=== PATIENT | female | born 1970 | race Caucasian/White ===

== ENCOUNTER 2019-03-01 03:51 | Inpatient (IN) ==
[2019-03-01] MEDS ORDERED: ONDANSETRON 4 MG/2 ML VIAL IV STA (04:15)
[2019-03-01] MEDS ORDERED: MEPERIDINE 25 MG/1 ML VIAL IV STA (04:15)
[2019-03-01] MEDS ORDERED: ONDANSETRON 4 MG/2 ML VIAL IV PRN (06:05)
[2019-03-01] MEDS ORDERED: HYDROmorphone 2 MG/1 ML VIAL IV PRN (06:05)
[2019-03-01] MEDS ORDERED: ACETAMINOPHEN 325 MG TABLET PO PRN (06:05)
[2019-03-01] MEDS: SODIUM CHLORIDE 0.9% 1,000 ML IV SCH ×2 (06:38→19:27)
[2019-03-01] MEDS ORDERED: LIDOCAINE 1%/EPI INJ 20 ML VIAL ONE (09:30)
[2019-03-01] MEDS ORDERED: TISSUE ADHESIVE 1 EACH APPLICATOR TOP ONE (10:48)
[2019-03-01] MEDS ORDERED: DEXTROSE 50% 25 GM/50 ML SYRINGE IV PRN (10:59)
[2019-03-01] MEDS ORDERED: GLUCAGON 1 MG VIAL IM PRN (10:59)
[2019-03-01] MEDS ORDERED: PROPOFOL 200 MG/20 ML VIAL IV ONE (11:28)
[2019-03-01] MEDS ORDERED: MIDAZOLAM 2 MG/2 ML VIAL ONE (11:29)
[2019-03-01] MEDS ORDERED: fentaNYL 100 MCG/2 ML VIAL ONE (11:29)
[2019-03-01] MEDS ORDERED: ONDANSETRON 4 MG/2 ML VIAL ONE (11:29)
[2019-03-01] MEDS ORDERED: SEVOFLURANE 1 UNIT/15 MINUTE INH ONE (11:29)
[2019-03-01] MEDS ORDERED: ROCURONIUM 100 MG/10 ML VIAL IV ONE (11:30)
[2019-03-01] MEDS ORDERED: KETOROLAC 30 MG/1 ML VIAL ONE (11:30)
[2019-03-01] MEDS ORDERED: SUCCINYLCHOLINE 200 MG/10 ML VIAL ONE (11:30)
[2019-03-01] MEDS ORDERED: ACETAMINOPHEN 1,000 MG/100 ML VIAL IV ONE (11:30)
[2019-03-01] MEDS ORDERED: GLYCOPYRROLATE 0.4 MG/2 ML VIAL ONE (11:30)
[2019-03-01] MEDS ORDERED: NEOSTIGMINE 10 MG/10 ML VIAL ONE (11:30)
[2019-03-01] MEDS: PIPERACILLIN/TAZOBACTAM 3,375 MG in SODIUM CHLORIDE 0.9% 100 ML IV SCH ×2 (12:21→19:26)
[2019-03-01] MEDS: PANTOPRAZOLE 40 MG TABLET PO SCH (12:35)
[2019-03-01] MEDS ORDERED: MONTELUKAST 10 MG TABLET PO ONE (16:43)
[2019-03-01] MEDS ORDERED: PHENOL 1.4% THROAT SPRAY 177 ML BOTTLE PO PRN (19:15)
[2019-03-02] MEDS: PIPERACILLIN/TAZOBACTAM 3,375 MG in SODIUM CHLORIDE 0.9% 100 ML IV SCH ×2 (03:53→12:15)
[2019-03-02 04:50] LABS: Basophils # 0.1 10*3/uL (0.0-0.2); Basophils % 0.5 % (0.0-0.8); Eosinophils # 0.2 10*3/uL (0.0-0.87); Eosinophils % 1.2 % (0.00-10.9); Hematocrit 37.2 VOL% (35.7-47.0); Hemoglobin 11.6 GM/DL (12.0-16.0); Immature Granulocytes % 0.5 %; Immature Granulocytes Absolute 0.08 #; Lymphocytes # 2.7 10*3/uL (1.4-4.0); Lymphocytes % 17.9 % (21.3-54.2); Mean Corpuscular HGB Conc 31.2 GM/DL (32-36); Mean Corpuscular Volume 92.5 FL (87-102); Mean Platelet Volume 10.6 FL (9.6-12.0); Monocytes % 6.5 % (1.7-12.7); Neutrophils % 73.4 % (38.7-73.9); Platelet Count 295 T/CUMM (130-400); Red Blood Count 4.02 MC/CUMM (3.8-5.5); Red Cell Distribution Width 13.3 % (9.3-17.3); White Blood Count 14.8 T/CUMM (4-12)
[2019-03-02 05:09] LABS: Albumin 2.6 G/DL (3.4-5.0); Bilirubin,Total 0.7 MG/DL (0.2-1.0); Calcium 7.3 MG/DL (8.5-10.1); Osmolality,Calculated 282.1 MOS/KG (273-304); Total Protein 5.7 G/DL (6.4-8.3)
[2019-03-02] MEDS: PANTOPRAZOLE 40 MG TABLET PO SCH (08:57)
[2019-03-02] MEDS ORDERED: CETIRIZINE 10 MG TABLET PO SCH (09:00)
[2019-03-02] MEDS ORDERED: hydroCHLOROthiazide 25 MG TABLET PO SCH (09:00)
[2019-03-02] MEDS ORDERED: LOSARTAN 50 MG TABLET PO SCH (09:00)
[2019-03-02] MEDS ORDERED: MONTELUKAST 10 MG TABLET PO SCH (09:00)
[2019-03-02] MEDS: SODIUM CHLORIDE 0.9% 1,000 ML IV SCH (10:05)
[2019-03-02 11:08] VITALS: BP 123/76
== END 2019-03-02 11:45 | disposition home or self-care (01) | DRG 343 ==
LOC: EDUNIT# → EDBD → N.ED 03:51 → N.EDINP 04:33 → N.3E 04:49
PROVIDERS: ADMIT Surgery; ATTEND Surgery